=== PATIENT | male | born 1970 | race Caucasian/White ===

== ENCOUNTER 2024-03-23 12:21 | Emergency (ER) | payer OTHER ==
[~2024-03-23] VITALS: Ht 182.9 cm; Wt 116.1 kg
[2024-03-23 12:30] VITALS: PULSE 73; RESP 18; TEMP 98.6
[2024-03-23] MEDS: SODIUM CHLORIDE 0.9% 1000ML 1,000 ML IV STA (12:48)
[2024-03-23 13:11] LABS: BASOPHILS # (AUTO) 0.1 (0.0-0.1); BASOPHILS % 1.4 % (0.0-1.0); EOSINOPHILS # (AUTO) 0.2 (0.0-0.4); EOSINOPHILS % 2.6 % (0.0-6.0); HEMATOCRIT 42.5 % (38.2-49.6); HEMOGLOBIN 15.3 g/dL (14.0-18.0); LYMPHOCYTES # (AUTO) 1.4 (1.0-3.2); LYMPHOCYTES % 16.8 % (18.0-39.1); MEAN CORPUSCULAR HEMOGLOBIN 34.5 pg (28-32); MEAN CORPUSCULAR VOLUME 95.7 fL (81-99); MONOCYTES # (AUTO) 0.8 (0.2-0.8); MONOCYTES % 8.9 % (4.4-11.3); NEUTROPHILS # (AUTO) 5.9 (2.1-6.9); NEUTROPHILS % 69.9 % (38.7-80.0); PLATELET COUNT 199 x10e3/uL (140-360); RED BLOOD COUNT 4.44 x10e6/uL (4.3-5.7); RED CELL DISTRIBUTION WIDTH 12.3 % (11.7-14.4); WHITE BLOOD COUNT 8.39 x10e3/uL (4.8-10.8)
[2024-03-23 13:38] LABS: BILIRUBIN,URINE NEGATIVE (NEGATIVE); CLARITY,URINE CLEAR (CLEAR); COLOR,URINE YELLOW (YELLOW); GLUCOSE, URINE NEGATIVE (NEGATIVE); KETONES,URINE NEGATIVE (NEGATIVE); LEUKOCYTE ESTERASE ,URINE NEGATIVE (NEGATIVE); NITRITE,URINE NEGATIVE (NEGATIVE); PH,URINE 6 (5 - 7); PROTEIN,URINE DIPSTICK NEGATIVE (NEGATIVE); URINE UROBILINOGEN 0.2 mg/dL (0.2 - 1)
[2024-03-23 13:39] LABS: INR 0.94; PROTHROMBIN TIME 13.2 seconds (11.9-14.5)
[2024-03-23 13:40] LABS: PARTIAL THROMBOPLASTIN TIME 27.5 seconds (23.8-35.5); RBC,URINE 0-5 /HPF (0-5); WBC,URINE (MAN) 0-5 /HPF (0-5)
[2024-03-23 13:49] LABS: ALBUMIN 3.8 g/dL (3.5-5.0); ALBUMIN/GLOBULIN RATIO 1.1 (0.8-2.0); ANION GAP 16.3 mmol/L (8-16); BILIRUBIN,TOTAL 0.6 mg/dL (0.2-1.2); CALCIUM 7.6 mg/dL (8.4-10.2); CREATININE, SERUM 1.01 mg/dL (0.72-1.25); POTASSIUM 4.3 mmol/L (3.5-5.1); TOTAL PROTEIN 7.3 g/dL (6.5-8.1)
[2024-03-23 13:53] LABS: MAGNESIUM 0.9 MG/DL (1.3-2.1)
[2024-03-23 13:55] LABS: TROPONIN I 0.005 ng/mL (0-0.300)
[2024-03-23] MEDS ORDERED: SLOWMAG85 MG PO (14:43)
[2024-03-23] MEDS: MAGNESIUM SULFATE 2GM/50ML 50 ML IV ONE (14:45)
[2024-03-23 16:41] VITALS: BP 147/84; PULSE 67; RESP 18; O2SAT 100
== END 2024-03-23 16:42 | disposition home or self-care (01) ==
LOC: ER 12:27
DX: R53.1 Weakness (principal); R42 Dizziness and giddiness; E86.0 Dehydration; E83.42 Hypomagnesemia; E11.65 Type 2 diabetes mellitus with hyperglycemia; I10 Essential (primary) hypertension
CPT/HCPCS: 36415; 71045; 80053; 81001; 82550; 83735; 84484; 85025; 85610; 85730; 93005; 99284; J3475; J7030

== ENCOUNTER 2024-07-29 11:31 | Inpatient (IN) | payer OTHER ==
[~2024-07-29] VITALS: Ht 182.9 cm; Wt 120.2 kg
[~2024-07-29 11:31] MED LIST: SLOWMAG85 MG PO
[2024-07-29 11:44] VITALS: TEMP 99.1
[2024-07-29 12:12] LABS: BASOPHILS # (AUTO) 0.1 (0.0-0.1); BASOPHILS % 0.9 % (0.0-1.0); EOSINOPHILS # (AUTO) 0.2 (0.0-0.4); EOSINOPHILS % 1.9 % (0.0-6.0); HEMATOCRIT 46.8 % (38.2-49.6); HEMOGLOBIN 16.2 g/dL (14.0-18.0); LYMPHOCYTES # (AUTO) 1.3 (1.0-3.2); LYMPHOCYTES % 12.3 % (18.0-39.1); MEAN CORPUSCULAR HGB CONC 34.6 g/dL (31-35); MEAN CORPUSCULAR VOLUME 98.3 fL (81-99); MONOCYTES % 9.3 % (4.4-11.3); NEUTROPHILS # (AUTO) 7.9 (2.1-6.9); NEUTROPHILS % 75.2 % (38.7-80.0); PLATELET COUNT 194 x10e3/uL (140-360); RED BLOOD COUNT 4.76 x10e6/uL (4.3-5.7); RED CELL DISTRIBUTION WIDTH 11.8 % (11.7-14.4); WHITE BLOOD COUNT 10.56 x10e3/uL (4.8-10.8)
[2024-07-29 12:21] LABS: INR 0.94; PROTHROMBIN TIME 13.2 seconds (11.9-14.5)
[2024-07-29 12:22] LABS: PARTIAL THROMBOPLASTIN TIME 29.5 seconds (23.8-35.5)
[2024-07-29] MEDS: SODIUM CHLORIDE 0.9% 1000ML 1,000 ML IV STA (12:23)
[2024-07-29 12:29] LABS: ALBUMIN 3.6 g/dL (3.5-5.0); ALBUMIN/GLOBULIN RATIO 0.9 (0.8-2.0); ANION GAP 19.2 mmol/L (8-16); BILIRUBIN,TOTAL 1.1 mg/dL (0.2-1.2); CALCIUM 8.8 mg/dL (8.4-10.2); CREATININE, SERUM 0.85 mg/dL (0.72-1.25); POTASSIUM 4.2 mmol/L (3.5-5.1); TOTAL PROTEIN 7.6 g/dL (6.5-8.1)
[2024-07-29] MEDS ORDERED: IOPAMIDOL 370 MG/ML 100 ML INFUS..BTL INJ ONE (12:47)
[2024-07-29] MEDS: VANCOMYCIN 1.25GM/250 ML (PEG) 250 ML IV ONE (13:58)
[2024-07-29] MEDS: ONDANSETRON HCL INJ 2MG/ML 2ML 2 MG/ML VIAL IV STA (14:01)
[2024-07-29] MEDS: KETOROLAC TROMETHAMINE 30 MG/ML VIAL IV STA (14:50)
[2024-07-29] MEDS: MAGNESIUM SULFATE 2GM/50ML 50 ML IV ONE (14:51)
[2024-07-29] MEDS ORDERED: HYDROMORPHONE 1MG/1ML INJ IV PRN (15:00)
[2024-07-29] MEDS ORDERED: ONDANSETRON HCL INJ 2MG/ML 2ML 2 MG/ML VIAL IV PRN (15:00)
[2024-07-29] MEDS ORDERED: LORAZEPAM INJ 2 MG/ML VIAL IV PRN (15:00)
[2024-07-29 15:15] VITALS: PULSE 79; RESP 16
[2024-07-29] MEDS: SODIUM CHLORIDE 0.9% 1000ML 1,000 ML IV SCH (15:57)
[2024-07-29] MEDS: LORAZEPAM INJ 2 MG/ML VIAL IV ONE (15:58)
[2024-07-29 17:30] VITALS: BP 148/5; PULSE 80; RESP 20; TEMP 99; O2SAT 99
[2024-07-29 17:38] VITALS: BP 148/85; PULSE 80; RESP 20; TEMP 99; O2SAT 99
[2024-07-29] MEDS ORDERED: DOCUSATE SODIUM 100 MG CAP PO PRN (17:45)
[2024-07-29] MEDS ORDERED: ACETAMINOPHEN 325 MG TAB PO PRN (17:45)
[2024-07-29] MEDS ORDERED: ALBUTEROL/IPRATROPIUM 3 ML NEB NEB PRN (17:45)
[2024-07-29 20:00] VITALS: BP_SYST 148; BP_SYST 149; BP_DIAS 78; PULSE 83; PULSE 88; RESP 18; TEMP 98.8; O2SAT 97; O2SAT 99
[2024-07-29] MEDS ORDERED: MELATONIN 3 MG TAB PO PRN (21:00)
[2024-07-30] VITALS: BP 138/77; PULSE 78; RESP 18; TEMP 98.7; O2SAT 98
[2024-07-30 04:00] VITALS: BP 141/89; PULSE 69; RESP 18; TEMP 98.3; O2SAT 96
[2024-07-30 05:59] LABS: BASOPHILS # (AUTO) 0.1 (0.0-0.1); BASOPHILS % 0.8 % (0.0-1.0); EOSINOPHILS # (AUTO) 0.2 (0.0-0.4); EOSINOPHILS % 3.1 % (0.0-6.0); HEMATOCRIT 42.7 % (38.2-49.6); HEMOGLOBIN 14.6 g/dL (14.0-18.0); LYMPHOCYTES # (AUTO) 1.5 (1.0-3.2); LYMPHOCYTES % 19.5 % (18.0-39.1); MEAN CORPUSCULAR HEMOGLOBIN 33.9 pg (28-32); MEAN CORPUSCULAR HGB CONC 34.2 g/dL (31-35); MEAN CORPUSCULAR VOLUME 99.1 fL (81-99); MONOCYTES # (AUTO) 0.8 (0.2-0.8); MONOCYTES % 11.2 % (4.4-11.3); NEUTROPHILS # (AUTO) 4.9 (2.1-6.9); NEUTROPHILS % 65.1 % (38.7-80.0); PLATELET COUNT 171 x10e3/uL (140-360); RED BLOOD COUNT 4.31 x10e6/uL (4.3-5.7); RED CELL DISTRIBUTION WIDTH 11.7 % (11.7-14.4); WHITE BLOOD COUNT 7.52 x10e3/uL (4.8-10.8)
[2024-07-30 06:18] LABS: ALBUMIN 3.1 g/dL (3.5-5.0); ALBUMIN/GLOBULIN RATIO 0.9 (0.8-2.0); ANION GAP 17.3 mmol/L (8-16); BILIRUBIN,TOTAL 0.7 mg/dL (0.2-1.2); CREATININE, SERUM 0.89 mg/dL (0.72-1.25); TOTAL PROTEIN 6.5 g/dL (6.5-8.1)
[2024-07-30 06:36] LABS: POTASSIUM 3.3 mmol/L (3.5-5.1)
[2024-07-30] MEDS ORDERED: KETOROLAC TROMETHAMINE 30 MG/ML VIAL IV PRN (09:30)
[2024-07-30] MEDS ORDERED: HYDROCODONE/APAP 7.5MG-325MG 1 EA TAB PO PRN (09:30)
[2024-07-30] MEDS: SENNOSIDES 8.6 MG TAB PO SCH (10:23)
[2024-07-30 12:12] VITALS: BP 147/71; PULSE 97; RESP 20; TEMP 98.2; O2SAT 97
[2024-07-30 15:40] VITALS: BP 147/71; PULSE 97; RESP 20; TEMP 98.2; O2SAT 97
[2024-07-30] MEDS ORDERED: Docusate Sodium PO (15:50)
[2024-07-30] MEDS ORDERED: IBUPROFEN600 MG PO (15:50)
[2024-07-30] MEDS ORDERED: CIPRO500 MG PO (15:50)
[2024-07-30] MEDS ORDERED: SENOKOT8.6 MG PO (15:50)
[2024-07-30] MEDS ORDERED: METRONIDAZOLE500 MG PO (15:50)
[2024-07-30] MEDS ORDERED: ACETAMINOPHEN325 M1 PO (15:50)
== END 2024-07-30 17:55 | disposition home or self-care (01) | DRG 357 ==
LOC: ER 11:43 → ERHOLD 15:07 → MED/SURG2 16:19
PROVIDERS: ADMIT Internal Medicine; ATTEND Internal Medicine
PROC: 0JBB0ZZ Excision of Perineum Subcutaneous Tissue and Fascia, Open Approach (ICD-10-PCS; principal; 2024-07-30 08:31)
DX: K61.1 Rectal abscess (principal); E87.1 Hypo-osmolality and hyponatremia; E83.42 Hypomagnesemia; E11.9 Type 2 diabetes mellitus without complications; I10 Essential (primary) hypertension; E78.5 Hyperlipidemia, unspecified; K76.0 Fatty (change of) liver, not elsewhere classified; R16.1 Splenomegaly, not elsewhere classified; E66.9 Obesity, unspecified; Z68.35 Body mass index [BMI] 35.0-35.9, adult; Z88.5 Allergy status to narcotic agent; Z88.1 Allergy status to other antibiotic agents; F17.200 Nicotine dependence, unspecified, uncomplicated; F17.220 Nicotine dependence, chewing tobacco, uncomplicated
CPT/HCPCS: 36415; 71045; 74177; 80053; 83735; 85025; 85610; 85730; 87040; 99284; J1885; J2060; J2405; J2470; J2543; J3475; J7030; Q9967

== ENCOUNTER 2024-11-22 16:02 | Emergency (ER) | payer OTHER ==
[~2024-11-22] VITALS: Ht 182.9 cm; Wt 115.7 kg
[~2024-11-22 16:02] MED LIST changes: +ACETAMINOPHEN325 M1 PO; +CIPRO500 MG PO; +Docusate Sodium PO; +IBUPROFEN600 MG PO; +METRONIDAZOLE500 MG PO; +SENOKOT8.6 MG PO
[2024-11-22 16:09] VITALS: PULSE 94; RESP 16; TEMP 99.5
[2024-11-22] MEDS ORDERED: BELLADONNA ALK/PHENOBARBITAL 5 ML UDC PO STA (16:19)
[2024-11-22 16:25] LABS: BASOPHILS # (AUTO) 0.1 (0.0-0.1); EOSINOPHILS # (AUTO) 0.1 (0.0-0.4); EOSINOPHILS % 1.8 % (0.0-6.0); HEMATOCRIT 43.1 % (38.2-49.6); HEMOGLOBIN 15.8 g/dL (14.0-18.0); LYMPHOCYTES # (AUTO) 1.5 (1.0-3.2); LYMPHOCYTES % 24.9 % (18.0-39.1); MEAN CORPUSCULAR HEMOGLOBIN 33.7 pg (28-32); MEAN CORPUSCULAR HGB CONC 36.7 g/dL (31-35); MEAN CORPUSCULAR VOLUME 91.9 fL (81-99); MONOCYTES # (AUTO) 0.7 (0.2-0.8); MONOCYTES % 11.2 % (4.4-11.3); NEUTROPHILS # (AUTO) 3.7 (2.1-6.9); NEUTROPHILS % 60.8 % (38.7-80.0); PLATELET COUNT 187 x10e3/uL (140-360); RED BLOOD COUNT 4.69 x10e6/uL (4.3-5.7); RED CELL DISTRIBUTION WIDTH 13.2 % (11.7-14.4); WHITE BLOOD COUNT 6.14 x10e3/uL (4.8-10.8)
[2024-11-22] MEDS ORDERED: LIDOCAINE VISC 2% SOLN 15 ML UDC PO ONE (16:30)
[2024-11-22] MEDS ORDERED: MAGNESIUM/ALUMINUM/SIMETHICONE 30 ML UDC PO ONE (16:30)
[2024-11-22] MEDS: ONDANSETRON HCL INJ 2MG/ML 2ML 2 MG/ML VIAL IV STA (16:35)
[2024-11-22] MEDS: DONNATAL/LIDOCAINE/MAALOX 30 ML SUSP PO ONE (16:45)
[2024-11-22 16:54] LABS: ALBUMIN 3.8 g/dL (3.5-5.0); ALBUMIN/GLOBULIN RATIO 1.1 (0.8-2.0); ANION GAP 17.2 mmol/L (8-16); BILIRUBIN,TOTAL 0.9 mg/dL (0.2-1.2); CALCIUM 8.5 mg/dL (8.4-10.2); CREATININE, SERUM 0.99 mg/dL (0.72-1.25); TOTAL PROTEIN 7.4 g/dL (6.5-8.1)
[2024-11-22 16:55] LABS: POTASSIUM 3.2 mmol/L (3.5-5.1)
[2024-11-22 17:00] LABS: TROPONIN I 0.012 ng/mL (0-0.300)
[2024-11-22 17:55] VITALS: BP 157/99; PULSE 88; RESP 22; TEMP 98.7; O2SAT 98
== END 2024-11-22 17:58 | disposition home or self-care (01) ==
LOC: ER 16:09
DX: R10.13 Epigastric pain (principal); K29.70 Gastritis, unspecified, without bleeding; F10.10 Alcohol abuse, uncomplicated; R07.89 Other chest pain; E11.65 Type 2 diabetes mellitus with hyperglycemia; I10 Essential (primary) hypertension; E78.5 Hyperlipidemia, unspecified; F17.210 Nicotine dependence, cigarettes, uncomplicated
CPT/HCPCS: 36415; 71045; 80053; 83690; 84484; 85025; 93005; 99284; J2405; J2470